=== PATIENT | male | born 1960 | race African-American/Black ===

== ENCOUNTER 2025-01-29 09:52 | Inpatient (IN) | payer OTHER ==
[2025-01-29 10:18] VITALS: BMI 35.4
[2025-01-29] MEDS ORDERED: IBUPROFEN 400 MG TABLET (FP) PO PRN (10:44)
[2025-01-29] MEDS ORDERED: MAG HYDROX/AL HYDROX/SIMETH 30 ML UNIT-DOSE CUP PO PRN (10:44)
[2025-01-29] MEDS ORDERED: LOPERAMIDE HCL 2 MG CAPSULE PO PRN (10:44)
[2025-01-29] MEDS ORDERED: NALOXONE (NARCAN) HCL 4 MG/0.1 ML SPRAY NS PRN (10:44)
[2025-01-29] MEDS ORDERED: MAGNESIUM HYDROX 2400MG/30ML ORAL SUSPENSION 30 ML CUP PO PRN (10:44)
[2025-01-29] MEDS ORDERED: ONDANSETRON *ODT* 4 MG TABLET SL PRN (10:44)
[2025-01-29] MEDS ORDERED: hydrOXYzine PAMOATE 25 MG CAPSULE (FP) PO PRN (10:44)
[2025-01-29] MEDS ORDERED: ACETAMINOPHEN 325 MG TABLET (FP) PO PRN (10:44)
[2025-01-29] MEDS ORDERED: guaiFENesin 600 MG TABLET.ER (FP) PO PRN (10:44)
[2025-01-29] MEDS ORDERED: POLYETHYLENE GLYCOL (HEALTHYLAX) 3350 17 GM PACKET PO PRN (10:44)
[2025-01-29] MEDS ORDERED: METHOCARBAMOL 500 MG TABLET PO PRN (10:44)
[2025-01-29] MEDS ORDERED: DICYCLOMINE HCL 10 MG CAPSULE PO PRN (10:44)
[2025-01-29] MEDS ORDERED: IBUPROFEN 600 MG TABLET (FP) PO PRN (10:44)
[2025-01-29] MEDS ORDERED: BENZONATATE 200 MG CAPSULE PO PRN (10:44)
[2025-01-29] MEDS ORDERED: chlordiazePOXIDE HCL 25 MG CAPSULE ONE (11:14)
[2025-01-29] MEDS: chlordiazePOXIDE HCL 25 MG CAPSULE PO SCH (11:18)
[2025-01-29] MEDS: LOSARTAN 50MG/HCTZ 12.5MG 1 TAB PO SCH (11:18)
[2025-01-29] MEDS: FUROSEMIDE 20 MG TABLET (FP) PO SCH (11:18)
[2025-01-29 16:58] LABS: BASOPHILS # 0.01 x10^3/uL (0.01-0.08)
[2025-01-29 17:00] LABS: ABSOLUTE IMMATURE GRANULOCYTES 0.01 x10^3/uL (0.0-0.031); EOSINOPHIL % 3.8 % (0.8-7.0); EOSINOPHILS # 0.17 x10^3/uL (0.04-0.54); HEMATOCRIT 28.4 % (40.1-51.0); HEMOGLOBIN 9.2 g/dL (13.7-17.5); MCHC 32.4 g/dl (32.3-36.5); MEAN CELL VOLUME 88.8 fl (79.0-92.2); MEAN PLT VOLUME 9.1 fl (9.4-12.4); MONOCYTE # 0.51 x10^3/uL (0.30-0.82); MONOCYTE % 11.3 % (5.3-12.2); PLATELET COUNT 222 x10^3/uL (163-337); POTASSIUM 3.9 mmol/L (3.5-5.1); RDW 13.5 % (12.2-16.4)
[2025-01-29 17:10] LABS: BLOOD UREA NITROGEN 14.1 mg/dL (7-18)
[2025-01-29 17:12] LABS: CALCIUM 8.6 mg/dL (8.5-10.1)
[2025-01-29 17:13] LABS: CHOLESTEROL 174 mg/dL (50-200)
[2025-01-29 17:14] LABS: BILIRUBIN,TOTAL 0.4 mg/dL (0.2-1); LDL CHOLESTEROL (ONLY SJRH) 92 mg/dL (5-100); TOT PROT 5.7 g/dl (6.4-8.2)
[2025-01-29 17:17] LABS: HDL CHOLESTEROL 32 mg/dL (40-60)
[2025-01-29 17:20] LABS: N-TERMINAL BNP 284.7 pg/ml (5-125)
[2025-01-29] MEDS: chlordiazePOXIDE HCL 25 MG CAPSULE PO PRN (17:48)
[2025-01-29] MEDS: NALTREXONE HCL 50 MG TABLET PO ONE (18:01)
[2025-01-29] MEDS: THIAMINE 100 MG TABLET PO SCH (22:33)
[2025-01-29] MEDS: MELATONIN 5 MG TABLETS PO SCH (22:35)
[2025-01-30] MEDS: NALTREXONE HCL 50 MG TABLET PO SCH (10:33)
[2025-01-30] MEDS: PRENATAL VITAMINS W/ FOLIC ACID TABLET (FP) PO SCH (10:33)
[2025-01-30] MEDS: FUROSEMIDE 20 MG TABLET (FP) PO SCH (13:30)
[2025-01-30] MEDS: HYDROCORTISONE ACETATE 25 MG/SUPP.RECT RC ONE (19:30)
[2025-01-30] MEDS: ATORVASTATIN CA 20 MG TABLET (FP) PO SCH (22:32)
[2025-01-31] MEDS: chlordiazePOXIDE HCL 25 MG CAPSULE PO SCH (06:00)
[2025-01-31] MEDS: LEVOTHYROXINE NA 100 MCG TABLET (FP) PO SCH (06:04)
[2025-01-31] MEDS: BENZOCAINE/MENTHOL (CHLORASEPTIC ) LOZENGE MM PRN (22:27)
[2025-02-01] MEDS ORDERED: chlordiazePOXIDE HCL 10 MG CAPSULE PO PRN
[2025-02-01] MEDS: chlordiazePOXIDE HCL 10 MG CAPSULE PO SCH (05:46)
[2025-02-02] MEDS: chlordiazePOXIDE HCL 10 MG CAPSULE PO SCH (05:40)
[2025-02-02] MEDS: EZETIMIBE 10 MG TABLET (FP) PO SCH (09:24)
[2025-02-02 10:09] LABS: POTASSIUM 4.1 mmol/L (3.5-5.1)
[2025-02-02 10:18] LABS: CALCIUM 9.2 mg/dL (8.5-10.1)
[2025-02-02 10:19] LABS: BLOOD UREA NITROGEN 11.5 mg/dL (7-18)
[2025-02-02 10:21] LABS: CREATININE 0.9 mg/dL (0.55-1.3)
[2025-02-02] MEDS: BISMUTH SUBSALICYLATE 262 MG/15 ML BTL PO PRN (19:01)
[2025-02-03] MEDS: chlordiazePOXIDE HCL 10 MG CAPSULE PO ONE (06:23)
[2025-02-03 06:53] VITALS: PULSE 60
[2025-02-03 09:07] VITALS: BP 139/90; RESP 16; TEMP 97.6
== END 2025-02-03 09:50 | disposition home or self-care (01) | DRG 897 ==
LOC: YASAS 09:52 → Y6N 11:33
PROVIDERS: ADMIT Allergy & Immunology; ATTEND Family Medicine Addiction Medicine
PROC: HZ2ZZZZ Detoxification Services for Substance Abuse Treatment (ICD-10-PCS; principal; 2025-01-29)
DX: F10.230 Alcohol dependence with withdrawal, uncomplicated (principal); F10.282 Alcohol dependence with alcohol-induced sleep disorder; E78.5 Hyperlipidemia, unspecified; E78.1 Pure hyperglyceridemia; I11.0 Hypertensive heart disease with heart failure; I50.9 Heart failure, unspecified; E03.9 Hypothyroidism, unspecified; Z87.891 Personal history of nicotine dependence; Z87.09 Personal history of other diseases of the respiratory system; Z88.8 Allergy status to other drugs, medicaments and biological substances
CPT/HCPCS: 36415; 71045-TC-FY; 80048; 80053; 80061; 80305; 80307; 83036; 83880; 84439; 84443; 85025; 86780; 93005; 93010

== ENCOUNTER 2025-02-28 09:11 | Inpatient (IN) | payer OTHER ==
[2025-02-28 09:38] VITALS: BMI 35.4
[2025-02-28] MEDS ORDERED: IBUPROFEN 400 MG TABLET (FP) PO PRN (09:52)
[2025-02-28] MEDS ORDERED: NALOXONE (NARCAN) HCL 4 MG/0.1 ML SPRAY NS PRN (09:52)
[2025-02-28] MEDS ORDERED: BENZOCAINE/MENTHOL (CHLORASEPTIC ) LOZENGE MM PRN (09:52)
[2025-02-28] MEDS ORDERED: BISMUTH SUBSALICYLATE 524 MG/30 ML PO PRN (09:52)
[2025-02-28] MEDS ORDERED: IBUPROFEN 600 MG TABLET (FP) PO PRN (09:52)
[2025-02-28] MEDS ORDERED: MAGNESIUM HYDROX 2400MG/30ML ORAL SUSPENSION 30 ML CUP PO PRN (09:52)
[2025-02-28] MEDS ORDERED: ONDANSETRON *ODT* 4 MG TABLET SL PRN (09:52)
[2025-02-28] MEDS ORDERED: MAG HYDROX/AL HYDROX/SIMETH 30 ML UNIT-DOSE CUP PO PRN (09:52)
[2025-02-28] MEDS ORDERED: BENZONATATE 200 MG CAPSULE PO PRN (09:52)
[2025-02-28] MEDS ORDERED: POLYETHYLENE GLYCOL (HEALTHYLAX) 3350 17 GM PACKET PO PRN (09:52)
[2025-02-28] MEDS ORDERED: guaiFENesin 600 MG TABLET.ER (FP) PO PRN (09:52)
[2025-02-28] MEDS ORDERED: LOPERAMIDE HCL 2 MG CAPSULE PO PRN (09:52)
[2025-02-28] MEDS ORDERED: diazePAM 5 MG TABLET PO PRN (09:55)
[2025-02-28] MEDS ORDERED: diazePAM 5 MG TABLET ONE (11:02)
[2025-02-28] MEDS ORDERED: PRENATAL VITAMINS W/ FOLIC ACID TABLET (FP) PO ONE (11:03)
[2025-02-28] MEDS: PRENATAL VITAMINS W/ FOLIC ACID TABLET (FP) PO SCH (11:04)
[2025-02-28] MEDS: diazePAM 5 MG TABLET PO SCH (11:04)
[2025-02-28] MEDS: MELATONIN 5 MG TABLETS PO SCH (22:28)
[2025-02-28] MEDS: ATORVASTATIN CA 20 MG TABLET (FP) PO SCH (22:28)
[2025-02-28] MEDS: THIAMINE 100 MG TABLET PO SCH (22:28)
[2025-03-01] MEDS: LEVOTHYROXINE NA 100 MCG TABLET (FP) PO SCH (06:10)
[2025-03-01 08:25] LABS: HEMATOCRIT 30.6 % (40.1-51.0); HEMOGLOBIN 9.8 g/dL (13.7-17.5); MEAN CELL VOLUME 89.2 fl (79.0-92.2); MEAN PLT VOLUME 9.4 fl (9.4-12.4); PLATELET COUNT 239 x10^3/uL (163-337); RDW 13.2 % (12.2-16.4)
[2025-03-01 08:48] LABS: ALBUMIN 3.4 g/dl (3.4-5.0); BILIRUBIN,TOTAL 0.8 mg/dL (0.2-1); BLOOD UREA NITROGEN 20.8 mg/dL (7-18); CALCIUM 9.2 mg/dL (8.5-10.1); CREATININE 1.1 mg/dL (0.55-1.3); POTASSIUM 4.3 mmol/L (3.5-5.1); TOT PROT 6.2 g/dl (6.4-8.2)
[2025-03-01] MEDS: LOSARTAN POTASSIUM 50 MG TABLET PO SCH (11:40)
[2025-03-01] MEDS: ACETAMINOPHEN 325 MG TABLET (FP) PO PRN (22:26)
[2025-03-02] MEDS: diazePAM 5 MG TABLET PO SCH (05:21)
[2025-03-02] MEDS: METHOCARBAMOL 500 MG TABLET PO PRN (05:23)
[2025-03-03] MEDS: diazePAM 5 MG TABLET PO SCH (05:50)
[2025-03-04] MEDS: diazePAM 5 MG TABLET PO ONE (05:56)
[2025-03-04 09:19] VITALS: BP 143/81; PULSE 62; RESP 18; TEMP 97.1
== END 2025-03-04 10:09 | disposition home or self-care (01) | DRG 897 ==
LOC: YASAS 09:11 → Y6N 11:24 → Y3N 13:14
PROVIDERS: ADMIT Allergy & Immunology; ATTEND Allergy & Immunology
PROC: HZ2ZZZZ Detoxification Services for Substance Abuse Treatment (ICD-10-PCS; principal; 2025-02-28)
DX: F10.230 Alcohol dependence with withdrawal, uncomplicated (principal); F10.282 Alcohol dependence with alcohol-induced sleep disorder; F19.24 Other psychoactive substance dependence with psychoactive substance-induced mood disorder; F41.9 Anxiety disorder, unspecified; G47.00 Insomnia, unspecified; E03.9 Hypothyroidism, unspecified; E78.5 Hyperlipidemia, unspecified; I10 Essential (primary) hypertension; M54.50 Low back pain, unspecified; G89.29 Other chronic pain; Z88.8 Allergy status to other drugs, medicaments and biological substances
CPT/HCPCS: 36415; 80053; 80305; 80307; 85027; 86780

== ENCOUNTER 2025-07-13 13:21 | Inpatient (IN) | payer OTHER ==
[2025-07-13 14:37] VITALS: BMI 35.9
[2025-07-13] MEDS ORDERED: MAGNESIUM HYDROX 2400MG/30ML ORAL SUSPENSION 30 ML CUP PO PRN (15:12)
[2025-07-13] MEDS ORDERED: NICOTINE POLACRILEX 2 MG LOZENGE BC PRN (15:12)
[2025-07-13] MEDS ORDERED: POLYETHYLENE GLYCOL (HEALTHYLAX) 3350 17 GM PACKET PO PRN (15:12)
[2025-07-13] MEDS ORDERED: NALOXONE (NARCAN) HCL 4 MG/0.1 ML SPRAY NS PRN (15:12)
[2025-07-13] MEDS ORDERED: ACETAMINOPHEN 325 MG TABLET (FP) PO PRN (15:12)
[2025-07-13] MEDS ORDERED: IBUPROFEN 400 MG TABLET (FP) PO PRN (15:12)
[2025-07-13] MEDS ORDERED: LOPERAMIDE HCL 2 MG CAPSULE PO PRN (15:12)
[2025-07-13] MEDS ORDERED: NICOTINE POLACRILEX 2 MG GUM BUC PRN (15:12)
[2025-07-13] MEDS ORDERED: DICYCLOMINE HCL 10 MG CAPSULE PO PRN (15:12)
[2025-07-13] MEDS ORDERED: MAG HYDROX/AL HYDROX/SIMETH 30 ML UNIT-DOSE CUP PO PRN (15:12)
[2025-07-13] MEDS ORDERED: BENZOCAINE/MENTHOL (CHLORASEPTIC ) LOZENGE MM PRN (15:12)
[2025-07-13] MEDS ORDERED: BENZONATATE 200 MG CAPSULE PO PRN (15:12)
[2025-07-13] MEDS ORDERED: ONDANSETRON *ODT* 4 MG TABLET SL PRN (15:12)
[2025-07-13] MEDS ORDERED: guaiFENesin 600 MG TABLET.ER (FP) PO PRN (15:12)
[2025-07-13] MEDS ORDERED: amLODIPine BESYLATE 5 MG TABLET (FP) PO SCH ×2 (17:00→17:30)
[2025-07-13] MEDS: amLODIPine BESYLATE 10 MG TABLET (FP) PO SCH (17:30)
[2025-07-13] MEDS ORDERED: PATIENT'S OWN MEDICATION (NON-FORMULARY) (Brimonidine Tartrate/Timolol [Combigan 0.2%-0.5% OD SCH (22:00)
[2025-07-13] MEDS: MELATONIN 5 MG TABLETS PO SCH (22:22)
[2025-07-13] MEDS: THIAMINE 100 MG TABLET PO SCH (22:22)
[2025-07-13] MEDS: ATORVASTATIN CA 20 MG TABLET (FP) PO SCH (22:22)
[2025-07-13] MEDS: TIMOLOL 0.5% OPHTHALMIC SOL 5 ML BOTTLE OD SCH (22:49)
[2025-07-13] MEDS: LATANOPROST 0.005% OPHTH SOLN 2.5ML BOTTLE OD SCH (22:49)
[2025-07-13] MEDS: BRIMONIDINE TARTRATE 0.2% OPHTHALMIC 5 ML BOTTLE OD SCH (22:50)
[2025-07-14] MEDS: PRENATAL VITAMINS W/ FOLIC ACID TABLET (FP) PO SCH (10:27)
[2025-07-14] MEDS: LOSARTAN POTASSIUM 50 MG TABLET PO SCH (10:27)
[2025-07-14] MEDS: IBUPROFEN 600 MG TABLET (FP) PO PRN (10:31)
[2025-07-14 11:44] LABS: MCHC 31.7 g/dl (32.3-36.5); MEAN CELL VOLUME 90.5 fl (79.0-92.2); MEAN PLT VOLUME 9.3 fl (9.4-12.4); RDW 15.2 % (12.2-16.4)
[2025-07-14 11:58] LABS: GLUCOSE,RANDOM 89 mg/dL (74-106); TOT PROT 6.2 g/dl (6.4-8.2)
[2025-07-14 11:59] LABS: CO2 25 mmol/L (21-32)
[2025-07-14 12:01] LABS: ALK PHOS 64 U/L (40-150)
[2025-07-14 12:03] LABS: SGOT/AST 31 U/L (5-34); SGPT/ALT 24 U/L (0-55)
[2025-07-14 12:04] LABS: CREATININE 1.09 mg/dL (0.55-1.3)
[2025-07-14] MEDS: LEVOTHYROXINE NA 100 MCG TABLET (FP) PO SCH (12:04)
[2025-07-16] MEDS: BISMUTH SUBSALICYLATE 524 MG/30 ML PO PRN (04:18)
[2025-07-17 06:15] VITALS: BP 112/66; PULSE 63; RESP 16; TEMP 98.2
== END 2025-07-17 09:42 | disposition home or self-care (01) | DRG 897 ==
LOC: YASAS 13:21 → Y3N 15:49
PROVIDERS: ADMIT Neuromusculoskeletal Medicine & OMM; ATTEND Family Medicine
PROC: HZ2ZZZZ Detoxification Services for Substance Abuse Treatment (ICD-10-PCS; principal; 2025-07-13)
DX: F10.230 Alcohol dependence with withdrawal, uncomplicated (principal); E78.5 Hyperlipidemia, unspecified; E03.9 Hypothyroidism, unspecified; H54.40 Blindness, one eye, unspecified eye; H40.9 Unspecified glaucoma; I11.0 Hypertensive heart disease with heart failure; I50.9 Heart failure, unspecified; M54.9 Dorsalgia, unspecified; F41.9 Anxiety disorder, unspecified; G47.00 Insomnia, unspecified
CPT/HCPCS: 36415; 80053; 80305; 80307; 84443; 85027; 86780; 93005; 93010